=== PATIENT | male | born 1965 | race African-American/Black ===

== ENCOUNTER 2016-08-17 09:17 | Emergency (ER) | payer SELFPAY ==
[~2016-08-17] VITALS: Ht 180.3 cm; Wt 66.0 kg
[2016-08-17 09:19] VITALS: BP 134/70; PULSE 72; RESP 15; TEMP 98; O2SAT 98
--- NOTE | 2016-08-17 09:41 | PD ---
HPI . Wants HIV testing Chief Complaint: Medical Clearance Time Seen by Provider: 09:41 Travel History International Travel<30 days: No Contact w/Intl Traveler<30days: No Traveled to known affect area: No History of Present Illness HPI 51-year-old male with no significant medical history here requesting HIV testing. He tells me that he is considering getting involved in a sexual relationship with a new woman and they both want to be tested for HIV. No medical complaints he has no abnormal symptoms. He is also asking me how much this is going to cost him. PFSH Past Medical History Medical History: Denies Significant Hx Social History Tobacco Use: No Allergies-Medications (Allergen,Severity, Reaction): Coded Allergies: No Known Allergies (Unverified , 08/17/16) Review of Systems General / Constitutional: No: Fever Eyes: No: Visual changes HENT: No: Headaches Cardiovascular: No: Chest Pain or Discomfort Respiratory: No: Shortness of Breath Gastrointestinal: No: Abdominal Pain Genitourinary: No: Dysuria Musculoskeletal: No: Pain Skin: No Rash Neurologic: No: Weakness Psychiatric: No: Depression Endocrine: No: Polydipsia Hematologic/Lymphatic: No: Easy Bruising Physical Exam Narrative GENERAL: AAO x 3, no acute distress, Well-nourished, well-developed patient. SKIN: Warm and dry. No visible rashes or bruising. HEAD: Normocephalic and atraumatic. EYES: No scleral icterus. No injection or drainage. ENT: No nasal drainage noted. . Airway patent. NECK: Supple, trachea midline. No JVD. CARDIOVASCULAR: Regular rate and rhythm without murmurs, gallops, or rubs. RESPIRATORY: Breath sounds equal bilaterally. No accessory muscle use. No rhonchi or rales. GASTROINTESTINAL: Visual inspection is normal EXTREMITIES: No cyanosis or edema. BACK: Nontender without obvious deformity. No CVA tenderness. PSYCH: AAO x 3, normal affect. Data Data Last Documented VS Vital Signs Date Time Temp Pulse Resp B/P Pulse Ox O2 Delivery O2 Flow Rate FiO2 08/17/16 09:19 98.0 72 15 134/70 98 MDM Medical Decision Making Medical Screen Exam Complete: Yes Emergency Medical Condition: No Medical Record Reviewed: Yes Differential Diagnosis STD screen, medical clearance Narrative Course 51-year-old male with no significant medical history here requesting HIV testing. He tells me that he is considering getting involved in a sexual relationship with a new woman and they both want to be tested for HIV. No medical complaints he has no abnormal symptoms. He is also asking me how much this is going to cost him. A medical screening exam was performed: At the time of evaluation the presenting medical condition was determined not to be of an emergent nature. The patient was given the option of receiving additional care, but declined. Patient was given options for additional community resources from which to obtain care. The Patient Has Been advised to seek medical attention for their presenting complaint. The patient has been advised to return to the ER at any time if an emergent condition develops. Diagnosis Primary Impression: Encounter for medical screening examination Condition: Stable Mary Kay Lam Aug 17, 2016 09:41
== END 2016-08-17 10:15 | disposition left against medical advice (07) ==
LOC: NEPK 09:17
DX: Z04.9 Encounter for examination and observation for unspecified reason (principal)
CPT/HCPCS: 99281